=== PATIENT | female | born 1950 | race Caucasian/White ===

== ENCOUNTER 2017-12-13 20:20 | Inpatient (IN) | payer OTHER ==
[~2017-12-13] VITALS: Ht 160 cm; Wt 102.5 kg
--- NOTE | ~2017-12-13 | O ---
[facility] [place] [address] [place] [address] OPERATIVE REPORT Name: BRIANNA MANZO Room #: 417-I [facility] ..#: [id number] Admission: 12/13/17 Attend Phys: Everett Driver MD Discharge: 12/15/17 Date of : 50 Report #: [id number] THIS REPORT FOR: //name// CC: [facility] physician/PCP Everett Driver PREOPERATIVE DIAGNOSES: Right ureteral stone. POSTOPERATIVE DIAGNOSES: Right ureteral stone. PROCEDURE: Cystoscopy, right ureteroscopy with retrieval of right ureteral stone and indwelling right ureteral stent placement. SURGEON: Sergo Shepherd M.D. ANESTHESIA: General. INDICATIONS: The patient is a delightful 67-year-old woman who presented to the Emergency Room with a symptomatic right distal ureteral stone. Retrospectively, she has been intermittently symptomatic with this for about 4 weeks, but became acutely ill just prior to admission. She has continued to require narcotics. She has been counseled with respect to treatment options and has opted for endoscopic management. She has undergone endoscopic management in the past. Risks, benefits, complications including sepsis, bleeding and open surgery either immediately or delayed have been discussed. I discussed issues related both to stent placement and stent removal. She understands that she could even lose the kidney and required open surgery due to complications of the stone or procedure. Risk of deep venous thrombosis, pulmonary embolism, heart attack, stroke and were discussed. She understands that I cannot foresee all potential complications and side effects. DESCRIPTION OF PROCEDURE: After obtaining informed consent, she was brought to the operating room and general anesthetic was administered IV and timeout was performed. She is on an antibiotic regimen of Rocephin. She was prepped and draped in lithotomy position. Preliminary fluoroscopic images showed multiple opacifications in the right hemipelvis. A 21-Anguillan ACMI cystoscope was introduced. The bladder was smooth walled. No intrinsic mucosal lesions. The left hemitrigone and ureter was normal. The right ureter appeared normal, although there appeared to be a bulging just cephalad to the actual orifice. I introduced the 21-Anguillan ACMI cystoscope and I placed a 0.35 mm Glidewire into the right ureter. I met just a little bit of resistance and then the Glidewire went easily into the right kidney. The ureteral orifice itself was pinpoint. Therefore, I dilated it to 15-Anguillan at 10 atmospheres using the 4-cm balloon. I then introduced a 6.9-Anguillan semirigid ureteroscope into the right ureter. The stone was visualized and in fact there was about a 1.5 cm blood clot attached to it. I was able to engage the stone with a 1.9 Anguillan nitinol 0 tip basket and the stone was removed as well as the attached clot. There was really [facility] [address] [place] [address] OPERATIVE REPORT Name: ROSALINDA BRIANNA GARCIA Room #: 417-I DIS IN .R.#: [id number] Admission: 12/13/17 Attend Phys: Everett Driver MD Discharge: 12/15/17 Date of : 50 Report #: [id number] minimal trauma to the ureter. I then backloaded the wire through the cystoscope and placed a 6-Anguillan x 24 cm contour stent with the proximal curl overlying the right renal shadow and the distal curl was in the bladder. The bladder was drained. I confirmed proper positioning fluoroscopically. She was transferred to the recovery room where she arrived in stable condition. Findings were shared with her family. <ELECTRONICALLY SIGNED> By: Sergo Shepherd MD 12/17/17 0750 [id number] Sergo Shepherd MD /nt
--- NOTE | ~2017-12-13 | HC ---
[facility] [place] [address] [place] [address] CONSULTATION Name: BRIANNA MANZO Room #: 417-I ADM IN .R.#: [id number] Admission: 12/13/17 Attend Phys: Everett Driver MD Discharge: Date of : 50 Report #: [id number] THIS REPORT FOR: //name// CC: [facility] physician/PCP Everett Driver CHIEF COMPLAINT: Right flank pain, right ureteral stone. HISTORY OF PRESENT ILLNESS: The patient is a very pleasant 67-year-old woman who is being seen this morning at the request of Dr. Joyce for evaluation and management of right ureteral stone. Specifically, she was hospitalized with right flank pain yesterday with a mild right hydronephrosis and hydroureter secondary to a 1-2 mm right distal ureteral stone. She underwent what sounds like ureteroscopy several years ago. She recently was treated for UTI, but she reports her symptoms were urgency and frequency, although recently the discomfort is localized to the right side. ALLERGIES: ACETAMINOPHEN, LATEX, OXYCODONE, COFFEE, TOMATO. ILLNESSES: GERD. SURGERIES: Ureteroscopy, ureteral stone removal, tonsillectomy. SOCIAL HISTORY: Nonsmoker, nondrinker. REVIEW OF SYSTEMS: She denies shortness of breath or chest pain. PHYSICAL EXAMINATION: GENERAL: She does appear somewhat uncomfortable. VITAL SIGNS: Temperature is 36.7, pulse 79, blood pressure 130/57, respirations 18. No respiratory distress. ABDOMEN: Soft, without masses. LABORATORY DATA: White count 8600, hemoglobin is 14.5, hematocrit 43.3, platelets 321,000. Sodium 140, potassium 4.3, chloride 105, CO2 of 22, BUN is 23, creatinine 1.1, lactic acid 1.6, calcium 9.7. Urine is clear, yellow, specific gravity is 1.015, pH of 6.0, negative for nitrites and leukocyte esterase, 0-5 red cells on urinalysis. CT shows a 1-2 mm distal ureteral stone on the right side, about 1-2 cm stone in the right UVJ with mild right hydronephrosis and hydroureter. There is a 9 mm left renal stone, which is nonobstructing. She has diverticulosis and hiatal hernia. IMPRESSION: Right distal ureteral stone. PLAN: 1. Agree with tamsulosin. 2. Hydration. [address] [address] CONSULTATION Name: ROSALINDA BRIANNA GARCIA Room #: 417-I ADM IN [facility].#: [id number] Admission: 12/13/17 Attend Phys: Everett Driver MD Discharge: Date of : 50 Report #: [id number] 3. We will observe for now, but I will go ahead and make her n.p.o. after midnight. If her pain is not controlled, then she may require endoscopic manipulation with stent placement. This was discussed in detail with her risks, benefits, complications and issues related to stent placement stent removal were discussed. We will follow closely. <ELECTRONICALLY SIGNED> By: Sergo Shepherd MD 12/14/17 1722 0811 [id number] Sergo Shepherd MD /nt
[2017-12-13 20:42] VITALS: BP 153/95
[2017-12-13 21:02] LABS: URINE BILIRUBIN NEGATIVE (Negative); URINE BLOOD 1+ (Negative); URINE CLARITY CLEAR; URINE COLOR YELLOW; URINE GLUCOSE-RANDOM* NEGATIVE (Negative); URINE KETONES NEGATIVE (Negative); URINE LEUKOCYTES NEGATIVE (Negative); URINE NITRITE NEGATIVE (Negative); URINE PROTEIN (DIPSTICK) NEGATIVE (Negative); URINE SPECIFIC GRAVITY 1.015 (1.005-1.035); URINE UROBILINOGEN 0.2 E.U./dl (0.2-1.0)
[2017-12-13 21:11] LABS: BACTERIA None Seen /HPF (None Seen); CASTS None Seen /LPF (None Seen); CRYSTALS None Seen /LPF (None Seen); SQUAMOUS 0-3 Few /LPF (0-3); URINE RBC 3-10 Few /HPF (0-2); URINE WBC 0-5 Rare /HPF (0-5)
[2017-12-13] MEDS ORDERED: KEFLEX500 M1 PO (21:12)
[2017-12-13 21:40] LABS: ABSOLUTE NEUTROPHILS 5.4 thou/uL (1.4-8.2); BASOPHILS 0.9 % (0.0-2.0); EOSINOPHILS 3.2 % (0.0-3.0); HEMATOCRIT 43.3 % (37.0-47.0); HEMOGLOBIN 14.5 gm/dL (12.0-15.0); LYMPHOCYTES 24.4 % (24.0-44.0); MCH 29.4 pg (26.0-34.0); MCHC 33.5 g/dL (28.0-37.0); MCV 87.6 fL (80.0-100.0); MONOCYTES 8.6 % (1.0-8.0); PLATELET COUNT 321 thou/uL (150-400); POLYS 62.9 % (36.0-66.0); RBC 4.95 mil/uL (4.20-5.00); RDW 14.6 % (10.5-14.5); WBC 8.6 thou/uL (4.0-11.0)
[2017-12-13 21:51] LABS: CALCIUM 9.7 mg/dL (8.5-10.1); CREATININE 1.1 mg/dL (0.6-1.0); POTASSIUM 4.3 mmol/L (3.5-5.1)
[2017-12-13 21:58] LABS: ALBUMIN 3.6 g/dL (3.4-5.0); TOTAL BILIRUBIN 0.4 mg/dL (<0.1-1.0); TOTAL PROTEIN 7.6 g/dL (6.4-8.2)
[2017-12-13 22:39] VITALS: BP 150/63
[2017-12-13 23:38] VITALS: BP 134/62
[2017-12-14] MEDS ORDERED: TUMS PO (00:06)
[2017-12-14] MEDS ORDERED: GAVISCON TABLE1 EACH PO (00:09)
[2017-12-14 04:38] VITALS: BP 130/57
[2017-12-14 18:56] VITALS: BP 130/59
[2017-12-15 03:09] VITALS: BP 134/59
[2017-12-15 07:51] VITALS: BP 136/51
[2017-12-15 11:51] VITALS: BP 136/51
== END 2017-12-15 13:12 | disposition home or self-care (01) | DRG 670 ==
LOC: ER 20:20 → 4E 22:19 → EROBS 22:19 → 4E 23:10
PROVIDERS: Emergency Medicine; Physician Assistant
PROC: 0TC68ZZ Extirpation of Matter from Right Ureter, Via Natural or Artificial Opening Endoscopic (ICD-10-PCS; principal; 2017-12-15)
PROC: 0T768DZ Dilation of Right Ureter with Intraluminal Device, Via Natural or Artificial Opening Endoscopic (ICD-10-PCS; principal; 2017-12-15)
DX: N20.2 Calculus of kidney with calculus of ureter (principal); K21.9 Gastro-esophageal reflux disease without esophagitis; Z88.6 Allergy status to analgesic agent; Z91.040 Latex allergy status; Z88.8 Allergy status to other drugs, medicaments and biological substances; Z91.018 Allergy to other foods; Z87.442 Personal history of urinary calculi; Z80.9 Family history of malignant neoplasm, unspecified; Z79.899 Other long term (current) drug therapy
CPT/HCPCS: 10084; 50164; 51179; 51620; 51767; 56815